=== PATIENT | male | born 1960 | race Caucasian/White ===

== ENCOUNTER 2016-05-19 17:50 | Emergency (ER) | payer OTHER ==
[~2016-05-19] VITALS: Ht 177.8 cm; Wt 107.7 kg
[~2016-05-19 17:50] MED LIST: HYDR-3090 PO; LEVO88TA4 PO; LOSA25TA21 PO
[2016-05-19 17:56] VITALS: BP 178/95; PULSE 83; RESP 20; O2SAT 96
[2016-05-19 19:09] LABS: BASOPHILS % (AUTO) 0.5 % (0-3); EOSINOPHILS % (AUTO) 0.7 % (0-5); Mean Corpuscular Hemoglobin 31.2 pg (27.0-35.0); Mean Corpuscular Volume 89.8 fL (81-100); NEUTROPHILS % (AUTO) 50.6 % (40-74); Platelet Count 144 bil/L (150-400)
--- NOTE | 2016-05-19 21:09 | ED.REPORT ---
HPI-Abd Pain M 40 and Over Date of Service May 19, 2016 ED Provider: Dr. Artemio Meneses M.D. A 56 year old male with a history of hypertension, hypothyroidism, and diverticulitis presents to the ED with LLQ abdominal pain onset 6 days ago. The pain is exacerbated with movement and described as "wool socks rubbing inside his stomach," similar to pain from previous diverticulitis flare-ups. The patient also reports fever (high of 101.5). He denies hematochezia, constipation , diarrhea, or vomiting. Nursing Notes Stated Complaint: ABDOMINAL PAIN Chief Complaint: Male Abdominal Pain Nursing Notes Reviewed: Yes Allergies: Coded Allergies: tramadol HCl (Verified Allergy, Severe, ANXIETY, 04/25/14) lisinopril (Verified Allergy, Intermediate, COUGH, 04/25/14) Uncoded Allergies: HAYFEVER (Allergy, Unknown, 09/09/15) Scheduled Levofloxacin (Levaquin) 750 Mg Tablet 750 MG PO DAILY Levothyroxine (Levothyroxine) 88 Mcg Tablet 88 MCG PO DAILY Metronidazole (Flagyl) 500 Mg Tablet 500 MG PO Q8H Scheduled PRN Docusate Sodium (Colace) 100 Mg Capsule 100 MG PO BID PRN PRN For Constipation Hydrocodone-Acetaminophen 5-300 mg (Hydrocodone-Acetaminophen 5-300 mg) 1 Each Tablet 1-2 TABLET PO Q4H PRN PRN For Pain Ondansetron ODT (Ondansetron ODT) 8 Mg Tab.rapdis 8 MG PO QID PRN PRN For Nausea Miscellaneous Medications Losartan Potassium (Losartan Potassium) 25 Mg Tablet 25 MG PO General Time Seen by MD: 21:09 Chief Complaint Abdominal pain Hx Obtained From: Patient Arrived By: Walk-in Sudden in Onset?: No Onset Occurred: 6 days ago Symptom Duration: Since onset Location: : LLQ Quality: Painful Severity: Current: Moderate Severity: Maximum: Moderate Associated with: Reports: Fever, Denies: Constipation, Diarrhea, Hematochezia, Vomiting Exacerbated by: Movement Pertinent Negative: Relieved by nothing Recent Healthcare: No recent doctor visit Similar Sx Previous: Yes Past Medical History Past Medical History Diverticulitis Hypothyroid Hypertension Past Surgical History Reports: Back/neck surgery Smoking History Never Smoker Social History Alcohol Use: "Social" Drug Use: Denies drug use Other Social History: Good social support, , Local resident Ambulatory Status Independent Review of Systems Constitutional: Reports: Fever (High of 101.5) GI: Reports: Abdominal pain, Denies: Bloody/tarry stool, Constipation, Diarrhea, Hematochezia, Vomiting Complete sys rev & neg: except as marked. Physical Exam Initial Vital Signs Vital Signs (First) Date Time Temp Pulse Resp B/P Pulse Ox O2 Delivery O2 Flow Rate FiO2 05/19/16 17:56 36.8 83 20 178/95 96 Room Air Initial VS: Reviewed Head / Eyes: Atraumatic, Normocephalic ENT: Conjunctiva normal, No scleral icterus Neck: Supple, Full range of motion Skin: Warm, Dry, No cyanosis Neurologic: Alert, Oriented, Nonfocal Psychiatric: Mood/affect normal, Behavior normal, Normal thought content General/Constitutional: Awake, Alert, No acute distress Respiratory / Chest: Breath sounds NL, Breath sounds = bilat, No respiratory distress Cardiovascular: Heart rate NL, Regular rhythm, Heart sounds NL Abdomen: Atraumatic, Soft Tenderness/Guarding/Rebound: Positive: Tender LLQ..., Tender LUQ... Interpretation & Diagnostics Lab Results Interpretation Result Diagram: 05/19/16 1845 05/19/16 1845 Test 05/19/16 18:45 05/19/16 22:04 05/19/16 22:08 White Blood Count 4.4th/mm3 (3.8-10.1) Red Blood Count 5.10mil/mm3 (4.40-5.80) Hemoglobin 15.9g/dL (13.8-17.2) Hematocrit 45.8% (41.0-50.0) Mean Corpuscular Volume 89.8fL (81-100) Mean Corpuscular Hemoglobin 31.2pg (27.0-35.0) Mean Corpuscular Hemoglobin Concent 34.7% (32.0-37.0) Red Cell Distribution Width 12.5% (12.3-15.4) Platelet Count 144bil/L (150-400) Neutrophils (%) (Auto) 50.6% (40-74) Lymphocytes (%) (Auto) 31.0% (14-46) Monocytes (%) (Auto) 17.0% (4-12) Eosinophils (%) (Auto) 0.7% (0-5) Basophils (%) (Auto) 0.5% (0-3) Sodium Level 138mEq/L (134-144) Potassium Level 4.7mEq/L (3.5-5.2) Chloride Level 101mEq/L (97-108) Carbon Dioxide Level 26mmol/L (18-29) Blood Urea Nitrogen 10mg/dL (6-24) Creatinine 0.91mg/dL (0.76-1.27) Estimat Glomerular Filtration Rate 91mL/min (>59) Glucose Level 112mg/dL (60-99) Calcium Level 8.8mg/dL (8.5-10.1) Magnesium Level 2.0mg/dL (1.6-2.6) Total Bilirubin 0.3mg/dL (0.0-1.2) Aspartate Amino Transf (AST/SGOT) 28U/L (0-50) Alanine Aminotransferase (ALT/SGPT) 22U/L (0-44) Alkaline Phosphatase 60U/L (25-150) Total Protein 7.6g/dL (6.4-8.4) Albumin 4.1g/dL (3.4-5.0) Lipase 33U/L (13-60) Hold Purple Top Tube Received (Received) Hold Blue Top Tube Received (Received) Hold Red Top Tube Received (Received) Hold [place] Top Tube Received (Received) Urine Color Yellow (YELLOW) Urine Appearance Clear (CLEAR,HAZY) Urine pH 5.5 (5.0-8.0) Urine Specific [place] 1.025 (1.003-1.035) Urine Protein Negativemg/dL (NEG,TRACE) Urine Glucose (UA) Negativemg/dL (NEGATIVE) Urine Ketones Negativemg/dL (NEGATIVE) Urine Occult Blood Trace (NEGATIVE) Urine Nitrite Negative (NEGATIVE) Urine Bilirubin Negative (NEGATIVE) Urine Urobilinogen Normalmg/dL (NORMAL) Urine Leukocyte Esterase Negative (NEGATIVE) Urine RBC 0-2/hpf (0-2) Urine WBC 0-5/hpf (0-5) Urine Epithelial Cells Occasional/hpf (NONE-MOD) Urine Crystals None seen (NONE SEEN) Urine Bacteria None/hpf (NONE-FEW) Urine Hyaline Casts None/lpf (NONE) Urine Granular Casts None seen (NONE SEEN) Urine Waxy Casts None seen (NONE SEEN) Urine Red Blood Cell Casts None seen (NONE SEEN) Urine White Blood Cell Casts None seen (NONE SEEN) Urine Mucus Present (None Seen) Urine Trichomonas None seen (NONE SEEN) Urine Yeast None (NONE SEEN) Urine Culture Reflexed Not indicated CT Abd / Pelvis Interpretation IMPRESSION: Mild mid sigmoid diverticulitis. Non-emergent incidental findings as noted. Transmitted to ED at 05/19/2016 - 10:59:38 PM PST Study type: Abdominal CT IV contrast Interpretation / Wet Read by: Interpret - Radiologist Re-Eval/Medical Decision Med Decision/Clinical Course 56-year-old with prior diverticulitis presents with similar pain, and in fact has diverticulitis by CT. Home with Levaquin and Flagyl. Percocet for pain relief. Zofran if needed for nausea. Clear fluid progressive diet. Diverticulitis diet given. Follow up with PCP. Prompt return if worse despite treatment. Source of Hx: Old records Time of Eval: 23:03 Patient Status: Condition improved Re-Evaluation/Progress Note: Discussed with patient CT results, diagnosis, and plan for discharge. Follow-up and return to the ER instructions given. Patient agrees with plan for care and all questions were addressed. Counseled Regarding: Diagnosis, Need for follow-up, When/why to return to ED Discharge & Departure Shift Change Sign-Out Response to Therapy: Improved Primary Impression: Diverticulitis of sigmoid colon Disposition: Home Vital Signs - All Vital Signs Date Time Temp Pulse Resp B/P Pulse Ox O2 Delivery O2 Flow Rate FiO2 05/19/16 23:24 67 19 124/72 95 Room Air 05/19/16 22:21 70 18 134/77 96 Room Air 05/19/16 17:56 36.8 83 20 178/95 96 Room Air )( All Prior VS Reviewed: Yes Condition: Stable Patient Instructions: Diverticulitis (ED), Diverticulitis Diet (ED) Additional Instructions: Levaquin daily. Flagyl three times daily. Percocet sparingly if needed for pain. Stool softener twice daily. Follow up with your doctor in the office. Zofran four times daily if needed for nausea. Referrals: Krishan Parks MD (PCP) Scribe Attestation Portions of this note were transcribed by Barbara Salazar. I, Dr. Meneses, personally performed the history, physical exam, and medical decision-making; I reviewed and confirmed the accuracy of the information in the transcribed note. Signed by: Sae Rodríguez, 05/20/2016, 00:40 copies to: Krishan Parks MD, Christopher W MD May 19, 2016 21:09 BARBRAA SALAZAR May 19, 2016 21:20
[2016-05-19] MEDS ORDERED: 0.9% Sodium Chloride 1,000 ML IV ONE (21:17)
[2016-05-19] MEDS ORDERED: HYDROmorphone 1 mg/mL Inj IVPUSH PRN (21:20)
[2016-05-19] MEDS ORDERED: Ondansetron 2 mg/mL 2 mL Inj IVPUSH ONE (21:20)
[2016-05-19] MEDS ORDERED: Albuterol-Ipratropium 3 mL Inhalation Solution NEB ONE (21:35)
[2016-05-19] MEDS ORDERED: _Albuterol-HFA 60 Puff Inhaler INHALATION PRN (21:35)
[2016-05-19 22:21] VITALS: BP 134/77; PULSE 70; RESP 18; O2SAT 96
[2016-05-19 22:34] LABS: APPEARANCE,URINE CLEAR (CLEAR,HAZY); COLOR,URINE YELLOW (YELLOW)
[2016-05-19 22:35] LABS: OCCULT BLOOD,URINE TRACE (NEGATIVE); PH,URINE 5.5 (5.0-8.0); UROBILINOGEN,URINE NORMAL (NORMAL)
[2016-05-19] MEDS ORDERED: _oxyCODONE/APAP 5-325 mg Tablet PO PRN (23:05)
[2016-05-19] MEDS ORDERED: _Ondansetron ODT 4 mg Tablet PO PRN (23:05)
[2016-05-19] MEDS ORDERED: levoFLOXacin 750 mg Tablet PO ONE (23:05)
[2016-05-19] MEDS ORDERED: LEVO750T9 PO (23:09)
[2016-05-19] MEDS ORDERED: METR500T PO (23:09)
[2016-05-19] MEDS ORDERED: DOCU-41 PO (23:09)
[2016-05-19] MEDS ORDERED: ONDA8TAB10 PO (23:09)
[2016-05-19 23:24] VITALS: BP 124/72; PULSE 67; RESP 19; O2SAT 95
--- NOTE | 2016-05-20 09:11 | DRSVH ---
PROCEDURE: CT ABDOMEN AND PELVIS WITH CONTRAST ([id number]) INDICATIONS: llq abdo pain, hx diverticulitis TECHNIQUE: After the administration of oral and intravenous contrast, 5 mm thick sections acquired from the diap hragms to the symphysis. 5 mm thick coronal and sagittal reformats were performed. For radiation do se reduction, the following was used: automated exposure control, adjustment of mA and/or kV accordi ng to patient size. COMPARISON: [facility], CT, ABD/PELVIS W/CON (PNL), 01/08/2014, 20:44. [facility], CT, CT ABD PELVIS W CON, 09/09/2015, 9:20. FINDINGS: Image quality: Excellent. ABDOMEN: Lung bases: Lung bases are clear. Heart size is normal. Solid organs: There are a few scattered hypodense foci in the liver which are too small to characteri ze but unchanged compared to prior studies and likely represent cysts. The spleen is normal in size. The gallbladder appears within normal limits. Biliary system is non-dilated. Pancreas enhances no rmally. No adrenal nodules. Kidneys are normal in size and enhancement, without hydronephrosis. Peritoneum and bowel: Stomach and small bowel loops are normal in caliber and wall thickness. The a ppendix is normal in appearance. There is colonic diverticulosis redemonstrated with associated mild inflammatory changes in the mid sigmoid colon with mild colonic wall thickening and inflammatory fat stranding. The findings are consistent with acute diverticulitis. No free fluid, diverticular absc ess, or macroscopic free air. Nodes and vessels: No retroperitoneal or mesenteric adenopathy. Aorta and inferior vena cava are no rmal in caliber. Miscellaneous: No ventral hernias. PELVIS: Genitourinary: Bladder wall thickness is normal. Miscellaneous: No inguinal hernias or adenopathy. Bones: No suspicious bony lesions. No vertebral body compression fractures. There are postsurgical changes in the lower lumbar spine status post posterior fixation at L5-S1. Bilateral pars defects a re demonstrated with associated grade 1 anterolisthesis. There is also minimal retrolisthesis noted in the lumbar spine at L2-L3, L3-L4, and L4-5. Alignment appears unchanged compared to to the prior study. IMPRESSION: 1. Acute diverticulitis of the sigmoid colon without evidence of diverticular abscess or macroscopic free air. Dictated by: Andre Styles M.D. on 05/20/2016 at 9:10 Approved by: Andre Styles M.D. on 05/20/2016 at 9:10
== END 2016-05-19 23:42 | disposition home or self-care (01) ==
LOC: SED 17:50
DX: K57.32 Diverticulitis of large intestine without perforation or abscess without bleeding (principal); I10 Essential (primary) hypertension; E03.9 Hypothyroidism, unspecified; Z88.5 Allergy status to narcotic agent; Z88.8 Allergy status to other drugs, medicaments and biological substances
CPT/HCPCS: 36415; 74177; 80053; 81000; 83690; 83735; 85025; 96361; 96374; 96375; 99285; J1170; J2405; J7030; Q9967